=== PATIENT | female | born 1990 ===

== ENCOUNTER 2017-04-27 22:48 | Emergency (ER) | payer SELFPAY ==
[2017-04-27 23:00] VITALS: BP 128/82; PULSE 97; RESP 18; TEMP 99.1; O2SAT 99
--- NOTE | 2017-04-27 23:48 | ED PDOC ---
HPI: Back Time Seen by Provider: 04/27/17 22:58 Chief Complaint (Nursing): Back Pain Chief Complaint (Provider): Fall, back and neck pain - 18 weeks History Per: Patient History/Exam Limitations: no limitations Onset/Duration Of Symptoms: Days Current Symptoms Are (Timing): Still Present Additional Complaint(s): PT slipped and landed on her back and hit the right side of head. No LOC. Pt reports low back and neck pain. 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 Pt denies abdominal pain, pelvic pain or vaginal bleeding. Past Medical History Reviewed: Historical Data, Nursing Documentation, Vital Signs Vital Signs: Last Vital Signs Temp 99.1 F 04/27/17 22:56 Pulse 97 H 04/27/17 22:56 Resp 18 04/27/17 22:56 BP 128/82 04/27/17 22:56 Pulse Ox 99 04/27/17 22:56 - Medical History PMH: No Chronic Diseases - Surgical History Surgical History: No Surg Hx - Family History Family History: States: No Known Family Hx - Living Arrangements Living Arrangements: With Family - Social History Current smoker - smoking cessation education provided: No Alcohol: None Drugs: Denies - Allergies Allergies/Adverse Reactions: Allergies Allergy/AdvReac Type Severity Reaction Status Date / Time No Known Allergies Allergy Verified 04/27/17 22:56 Review of Systems ROS Statement: Except As Marked, All Systems Reviewed And Found Negative Constitutional: Negative for: Fever, Chills Cardiovascular: Negative for: Chest Pain Genitourinary Female: Negative for: Vaginal Discharge, Vaginal Bleeding, Pelvic Pain Musculoskeletal: Positive for: Neck Pain, Back Pain Physical Exam - Reviewed Nursing Documentation Reviewed: Yes Vital Signs Reviewed: Yes - Physical Exam Appears: Positive for: Well, Non-toxic, No Acute Distress Head Exam: Positive for: ATRAUMATIC, NORMAL INSPECTION, NORMOCEPHALIC (No palpable hematomas ) Skin: Positive for: Normal Color, Warm, DRY Eye Exam: Positive for: Normal appearance, EOMI, PERRL ENT: Positive for: Normal ENT Inspection Neck: Positive for: Painless ROM, Pain On Movement Of Neck. Negative for: Normal (Tenderness ) Cardiovascular/Chest: Positive for: Regular Rate, Rhythm Respiratory: Positive for: CNT, Normal Breath Sounds Gastrointestinal/Abdominal: Positive for: Normal Exam, Bowel Sounds, Soft Back: Positive for: Normal Inspection Extremity: Positive for: Normal ROM Neurologic/Psych: Positive for: Alert, game programmer II-XII, Oriented, Mood/Affect, Cerebellar Tests. Negative for: Motor/Sensory Deficits, Aphasia, Facial Droop - ECG O2 Sat by Pulse Oximetry: 99 Medical Decision Making Medical Decision Making: Fatal heart beat on doopler 146. Discussed x-rays with patients and risk/benefit. PT states she feels more sore and does not think she has aany broke bones. Pt does not want any imaging at this time. Discussed return for headache, N/V. Disposition - Clinical Impression Clinical Impression: Back pain, Fall - Disposition Disposition: Routine/Home Disposition Time: 23:42 Condition: STABLE Instructions: (ED) Forms: [facility] (Turkmen)
== END 2017-04-27 23:50 | disposition home or self-care (01) ==
LOC: H.ER 22:48
DX: O26.892 Other specified pregnancy related conditions, second trimester (principal); W01.0XXA Fall on same level from slipping, tripping and stumbling without subsequent striking against object, initial encounter; Z3A.18 18 weeks gestation of pregnancy

== ENCOUNTER 2017-08-19 14:32 | Emergency (ER) | payer SELFPAY ==
[2017-08-19 15:30] VITALS: BMI 31.3
[2017-08-19 16:35] LABS: BASO % 0.5 % (0.0-2.0); EOS % 0.5 % (0.0-4.0); LYMPH # 1.6 K/uL (1.0-4.3); LYMPH % 15.7 % (20.0-40.0); MEAN CORPUSCULAR HEMOGLOBIN 30.1 pg (27.0-31.0); MEAN PLATELET VOLUME 11.4 fl (7.2-11.7); MONO # 0.7 K/uL (0.0-0.8); MONO % 7.2 % (0.0-10.0); NEUT # 7.5 K/uL (1.8-7.0); NEUT % 76.1 % (50.0-75.0); NRBC % 0.1 % (0.0-0.0); RED CELL DISTRIBUTION WIDTH 14.2 % (11.5-14.5); WHITE BLOOD COUNT 9.9 K/uL (4.8-10.8)
[2017-08-19 16:42] LABS: RBC URINE 6 /hpf (0-3); URINE BILIRUBIN NEGATIVE (NEGATIVE); URINE BLOOD SMALL (NEGATIVE); URINE COLOR YELLOW (YELLOW); URINE GLUCOSE (UA) NEG (Normal); URINE KETONE NEGATIVE (NEGATIVE); URINE LEUKOCYTE ESTERASE TRACE Leu/uL (Negative); URINE PROTEIN 100 mg/dL (NEGATIVE); URINE UROBILINOGEN 0.2-1.0 mg/dL (0.2-1.0)
[2017-08-19 16:46] LABS: WBC URINE 7 /hpf (0-5)
[2017-08-19 16:47] LABS: ALKALINE PHOSPHATASE 134 U/L (38-126); ALT/SGPT 38 U/L (9-52); AST/SGOT 22 U/L (14-36); BILIRUBIN,TOTAL 0.1 mg/dl (0.2-1.3); BLOOD UREA NITROGEN 9 mg/dl (7-17); CALCIUM 8.6 mg/dL (8.4-10.2); CARBON DIOXIDE 19 mmol/L (22-30); CHLORIDE 110 mmol/L (98-107); GFR AFRICAN-AMERICAN > 60; GLUCOSE,RANDOM 79 mg/dL (65-105); SODIUM 136 mmol/l (132-148); TOTAL PROTEIN 6.4 G/DL (6.3-8.2)
[2017-08-19 16:48] LABS: PARTIAL THROMBOPLASTIN TIME 31.1 Seconds (25.6-37.1)
[2017-08-19] MEDS: Acetaminophen 650mg/20.3ml solution UD PO ONE (17:12)
--- NOTE | 2017-08-19 19:58 | OBHP ---
Datetime: 08/19/2017 19:41 Admit Comment, IP Provider: Late entry: Patient is a 27-year-old with a EDC of 09/28/2017 at who presents at 34.2 weeks with comp laints of headache intermittent for the past 2 days rated as 7/10. She states she did not take Tyleno l because he had it was intermittent and would come and go. She denies blurred vision spots in her vi yaneli midepigastric or right upper quadrant pain. She denies nausea vomiting. Patient was having an OB ultrasound today and was told everything was within normal limits during that time she complained of a headache and was referred to OB ED for further evaluation. She reports good movement; denie s ruptured membranes, contractions, or vaginal bleeding Her prior OB history significant for preeclampsia with a section at 35 weeks. Medications : vitamin; aspirin 81 mg daily Past surgical history: Left arm surgery; delivery Past medical history denies Social history patient denies tobacco or illicit drug use or alcohol use. o I: elev bps prior h/o preeclampsi P:cmp, cbc, u/a addendum result d/w dr lemus p: betameth today. rpeat in 24hr- indic d/w pt f/u w/ ob as sched'd in 1wk. repeat 24hr urine in 1wk. preeclamptic precauti pt stated h/a resolved and she had declined tylenol for h/a Extremities - PN: Normal Abdomen - PN: Normal Lungs - PN: Normal Neurologic - PN: Normal HEENT - PN: Normal General - PN: Normal FHR - Baseline A Provider: 120 Comments, ACOG Physical Exam: urine hcg 1wk ago_500mg protein/24hr u/ today: +2protein cmp, cbc. ldh nl Vital Signs Provider: Reviewed Vital Signs Provider Details: [id number] NICHD Variability Prov Fetus A: Moderate 6-25bpm NICHD Accel Fetus A IP Provider: 15X15 FHR Category Provider Fetus A: Category I NICHD Decel Fetus A IP Provider: None
[2017-08-19] MEDS: Betamethasone Soluspan 30 mg/5mL Inj Susp IM ONE (20:19)
[2017-08-20 02:48] VITALS: BP 128/82; PULSE 82; RESP 18; O2SAT 100
== END 2017-08-19 20:35 | disposition home or self-care (01) ==
LOC: H.EROB2 14:32
DX: O13.3 Gestational [pregnancy-induced] hypertension without significant proteinuria, third trimester (principal); O09.93 Supervision of high risk pregnancy, unspecified, third trimester; Z87.59 Personal history of other complications of pregnancy, childbirth and the puerperium; Z3A.34 34 weeks gestation of pregnancy
CPT/HCPCS: 80053; 81003; 83615; 85025; 85384; 85610; 85730; 86850; 86900; 96372; 99283; J0702

== ENCOUNTER 2017-08-20 19:27 | Emergency (ER) | payer SELFPAY ==
[2017-08-19 15:30] VITALS: BMI 31.3
[2017-08-20] MEDS: Betamethasone Soluspan 30 mg/5mL Inj Susp IM ONE (20:48)
--- NOTE | 2017-08-20 22:07 | OBDCSUM ---
Datetime: 08/20/2017 20:57 Discharged to, Provider: Home Follow up at, Provider: [facility] clinic Disch Instr Activity: Normal activity Disch Instr Diet: Regular Discharge Instructions, Provider: Routine instructions given Discharge Time: 08/20/2017 21:00 Follow up in weeks, Provider: Nola 08/28/17 Disch Referrals: None Contraception discussed, Prov: No Discharge Diagnosis Prov Other: w/ h/o pre-eclampsia for betamethasone administrat ion
--- NOTE | 2017-08-20 22:11 | OBHP ---
Datetime: 08/20/2017 20:27 IP Adm Impression: , intrauterine IP Chief Complaint Other: Betamethasone administration IP Admit Plan: Observation/Evaluation; Discharge home Admit Comment, IP Provider: 27 y/o F at 34.3 weeks GA, TEMO 09/28/[address] [place] [address], present ing for administration of 2nd dose of Betamethasone. Pt asymptomatic today. Pt reports intermittent e pisodes of headache that usually reach 7/10 intensity and resolves spontaneously over a few hours wit hout medications intake. Pt reports dizziness and blurry vision every 4-7 days which also resolves sp ontaneously. No VB, LOF or CTX. FM present. Pt presented yesterday to [facility] for pre-eclamptic work-up due to episodes of headache and elevated BP. Labs results were WNL. Betamethasone was administered la st night. Pt denies CP, SOB, pruritus, N/V or rash. -OBHx: 1x C/S at 35 weeks GA on 04/01/12 due to pre-eclampsia. 1X SAB at 8 weeks GA on 2009. Curre nt has been complicated with circumvallate placenta and positive Urine Cx for GBS. -NKDA -Medications: PNV and Aspirin. PMHx: denied PSHx: L arm fracture repair at 8 y.o, and 1x . FHx: NC SHx: No tobacco, alcohol or rec drugs. A/P 27 y/o F with IUP at 34.3 weeks GA with elevated BP and episodes of headache, blurry vision an d dizziness. -2nd dose of Betamethasone will be administered today. -Pt reinforced on going for F/U with Dr Myers next and to collect urine for 24 hr for pr otein before doctor's appointment. -PTL and pre-eclampsia precautions discussed with pt. Pt reported understanding. -Will discharge home. -Continue daily aspirin and PNV. Case discussed with Dr Calabrese, OB international trade analyst. David PGY-1 OB Hospitalist Addendum: Pt seen and examined by me. 27 yo at 34+3 wks for second dose of Betamethasone for sx of PEC. Pt denies MEDINA, vision changes, abdominal pain, N/V currently. Pt appea red comfortable lying in bed. Exam as above. NST reactive. Pt received second Betamthasone dose at 20:48 and was discharged home w/ PEC precautions. Pt to f/u in clinic and u/s on 08/28/2017. Pt al so to collect a 24 hr urine on 08/26/2017. (ES) Pelvic Type - PN: Adequate Extremities - PN: Normal Abdomen - PN: Normal Back - PN: Normal Lungs - PN: Normal Heart - PN: Normal Thyroid - PN: Normal Neurologic - PN: Normal HEENT - PN: Normal General - PN: Normal FHR - Baseline A Provider: 130 Comments, ACOG Physical Exam: HEENT: normocephalic, non-tender, EOMI, PERRL. CV: S1 and S2 present, rythm regular. Lungs: Clear to auscultation b/l, No wheezing or rales. Abdomen: soft, gravid, BS +, non-tender. EXT: mild bilateral lower leg edema. No cyanosis or clubbing. DTR 2+ b/l, normal ROM b/l, SILT b/l . Gestation - Est Wks by US: 34.3 IP Hx Assessment: The History has been Reviewed and is Current EGA AdmitDate IP: 34.3 Vital Signs Provider: Reviewed IP Chief Complaint: Other NICHD Variability Prov Fetus A: Moderate 6-25bpm NICHD Accel Fetus A IP Provider: 15X15 FHR Category Provider Fetus A: Category I DTRs - PN: Not Done
[2017-08-21 01:22] VITALS: BP 133/84; PULSE 79
== END 2017-08-20 21:00 | disposition home or self-care (01) ==
LOC: H.EROB2 19:27
DX: O14.93 Unspecified pre-eclampsia, third trimester (principal); Z3A.34 34 weeks gestation of pregnancy; Z23 Encounter for immunization; Z87.59 Personal history of other complications of pregnancy, childbirth and the puerperium
CPT/HCPCS: 96372; 99281; J0702

== ENCOUNTER 2017-08-27 10:43 | Inpatient (IN) | payer SELFPAY ==
[2017-08-27 11:15] VITALS: BMI 34.3
--- NOTE | 2017-08-27 12:10 | US ---
PROCEDURE: OB Pelvic Ultrasound HISTORY: decreased movement COMPARISON: None available. FINDINGS: UTERUS: Single intrauterine gestation. -without cardiac activity. demise. Heart rate: Not present. age (Ultrasound estimated): Biometric parameters correspond to an ultrasound dating of 33 weeks 3 days 2 weeks 2 days. The LMP dating gestational age is 35 weeks 3 days Lore-gestational hemorrhage: None. Date of delivery (Ultrasound estimated) : Not applicable Uterus measures cm. Normal in size and appearance. Transverse presentation. Posterior placenta. CERVIX: 3.7 cm and closed. No cervical abnormality seen. RIGHT OVARY: Not visualized LEFT OVARY: Not visualized FREE FLUID: None. OTHER FINDINGS: None. IMPRESSION: Single intrauterine gestation without cardiac activity consistent with demise. The biometric ultrasound parameters correspond to a mean ultrasound age is 33 weeks 3 days. Transverse presentation. Posterior placenta
[2017-08-27] MEDS ORDERED: ceFAZolin IV 2 gm in Dextrose 2 GM/50 ML BAG IVPB ONE (14:16)
[2017-08-27 14:35] LABS: BASO % 0.4 % (0.0-2.0); EOS % 0.4 % (0.0-4.0); HEMOGLOBIN 13.9 g/dL (12.0-16.0); LYMPH # 1.7 K/uL (1.0-4.3); LYMPH % 15.6 % (20.0-40.0); MEAN CELL VOLUME 88.4 fl (81.0-99.0); MEAN CORPUSCULAR HEMOGLOBIN 30.5 pg (27.0-31.0); MEAN CORPUSCULAR HGB CONC 34.5 g/dL (33.0-37.0); MEAN PLATELET VOLUME 10.8 fl (7.2-11.7); MONO # 0.8 K/uL (0.0-0.8); MONO % 7.2 % (0.0-10.0); NEUT # 8.1 K/uL (1.8-7.0); NEUT % 76.4 % (50.0-75.0); NRBC % 0.1 % (0.0-0.0); RBC 4.55 Mil/uL (3.80-5.20); RED CELL DISTRIBUTION WIDTH 14.5 % (11.5-14.5); WHITE BLOOD COUNT 10.6 K/uL (4.8-10.8)
[2017-08-27] MEDS: Lactated Ringer's 1,000 ML IV SCH ×2 (15:30→17:32)
[2017-08-27] MEDS ORDERED: Oxytocin 30 UNITS in Sodium Chloride 0.9% 500 ML IV ONE (17:00)
[2017-08-27] MEDS ORDERED: DiphenhydrAMINE 50 mg/ml Inj IVP PRN (19:46)
[2017-08-27] MEDS ORDERED: Oxycodone/Acetaminophen 5/325 mg Tab PO PRN (19:46)
--- NOTE | 2017-08-27 20:33 | RAD ---
EXAM: XR Abdomen, 1 View CLINICAL HISTORY: 27 years old, female; Signs and symptoms; Other: R/O foreign object; Additional info: S/P section TECHNIQUE: Frontal supine view of the abdomen/pelvis. COMPARISON: No relevant prior studies available. FINDINGS: Intraperitoneal space: Limited evaluation for pneumoperitoneum on supine view. Gastrointestinal tract: Nondistended stool and air-filled colon. Several borderline to mildly distended loops of small bowel. Bones/joints: No acute fracture. Soft tissues: No radiopaque foreign bodies. Other findings: No abnormal calcifications. IMPRESSION: 1. No radiopaque foreign bodies. 2. Nonspecific bowel gas pattern.
[2017-08-28 07:00] LABS: ALB/GLOB RATIO 0.9 (1.0-2.1); ALBUMIN 2.4 g/dL (3.5-5.0); ALT/SGPT 67 U/L (9-52); AST/SGOT 41 U/L (14-36); BLOOD UREA NITROGEN 10 mg/dl (7-17); CALCIUM 7.8 mg/dL (8.4-10.2); GFR AFRICAN-AMERICAN > 60; GFR NON-AFRICAN AMERICAN > 60
[2017-08-28 07:04] LABS: RED CELL DISTRIBUTION WIDTH 14.5 % (11.5-14.5)
[2017-08-28 07:23] LABS: HEMOGLOBIN 11.8 g/dL (12.0-16.0); MEAN CELL VOLUME 90.2 fl (81.0-99.0); MEAN CORPUSCULAR HEMOGLOBIN 29.4 pg (27.0-31.0); MEAN CORPUSCULAR HGB CONC 32.7 g/dL (33.0-37.0); RBC 4.02 Mil/uL (3.80-5.20); WHITE BLOOD COUNT 12.2 K/uL (4.8-10.8)
--- NOTE | 2017-08-28 07:40 | CP.PCM.PN ---
Subjective - Date & Time of Evaluation Date of Evaluation: 08/28/17 Time of Evaluation: 07:00 - Subjective Subjective: POD 1 S: 27 yo s/p on 08/27/17 2/2 demise. Pt. is seen and examined at bedside this AM. No significant overnight events. Pt reports mild abdominal pain, but well controlled with pain meds. D/c dominguez, dressing to be removed at 18:00. No nausea, advised to advance diet as tolerated. Breast feeding without difficulty. Lochia is similar to menses volume. No bowel movement, or passing gas per rectum. Denies fever/chills, diarrhea, nausea/ vomiting, chest pain, dyspnea, and dizziness. O: VS: stable GEN: NAD, Cardio: S1S2, no murmurs Lungs: clear breath sounds b/l, no wheezing Abdomen: BS+, tenderness to palpation. Incision scar to be examined at 1800 with dressing removal. Uterus is firm and at the level of the umbilicus. EXT: No edema, calves nontender NEURO/PSYCH: AAOx3, no grossly focal deficits, preserved affect and mood. Assessment/Plan: 27 yo s/p on 08/27/17 2/2 demise. Pt remains afebrile, tolerating pain with medication, doing well on POD#1. OOB with caution SCDs for DVT prophylaxis, encouraged ambulating Percocet 5/325mg, and Motrin 600mg for pain. Colace 100mg PO BID/Senokot 17.2 mg for constipation Encourage and ambulating f/u CBC post op, pending Anticipated d/c to home, 08/30/17. --- Logan Baez MD PGY-1 Objective - Vital Signs/Intake and Output Vital Signs (last 24 hours): Temp Pulse Resp BP Pulse Ox 98.1 F 76 22 121/71 96 08/28/17 04:48 08/28/17 04:48 08/28/17 04:48 08/28/17 04:48 08/28/17 04:48 - Medications Medications: Current Medications Acetaminophen (Tylenol 325mg Tab) 650 mg PO Q4H PRN PRN Reason: Pain, Mild (1-3) Last Admin: 08/28/17 02:57 Dose: 650 mg Diphenhydramine HCl (Benadryl) 50 mg IVP Q6 PRN PRN Reason: Itching / Pruritus Oxytocin (Pitocin 20 Units In Lr) 1,000 mls @ 125 mls/hr IV .Q8H NORA PRN Reason: Protocol Last Admin: 08/28/17 04:58 Dose: Not Given Ibuprofen (Motrin Tab) 600 mg PO Q4H PRN PRN Reason: Pain, Mild (1-3) Ketorolac Tromethamine (Toradol) 30 mg IVP Q6 PRN PRN Reason: Pain, moderate (4-7) Last Admin: 08/28/17 03:23 Dose: 30 mg Ondansetron HCl (Zofran Inj) 4 mg IVP Q6 PRN PRN Reason: Nausea/Vomiting Oxycodone/Acetaminophen (Percocet 5/325 Mg Tab) 1 tab PO Q4 PRN PRN Reason: For PCEA Breakthrough Pain Stop: 08/30/17 19:47 - Labs Labs: 08/28/17 06:25 08/28/17 06:25
--- NOTE | 2017-08-29 07:45 | CP.PCM.PN ---
Subjective - Date & Time of Evaluation Date of Evaluation: 08/29/17 Time of Evaluation: 07:45 - Subjective Subjective: POD 2 S: 27 yo s/p on 08/27/17 2/2 demise. Pt. is seen and examined at bedside this AM. No significant overnight events. Pt reports mild abdominal pain, but well controlled with pain meds. Dressing removed yesterday, tolerating PO without difficulty. Lochia is similar to menses volume. No bowel movement or passing gas per rectum. Denies fever/chills, diarrhea, nausea/ vomiting, chest pain, dyspnea, and dizziness. O: VS: stable GEN: NAD, Cardio: S1S2, no murmurs Lungs: clear breath sounds b/l, no wheezing Abdomen: BS+, tenderness to palpation. Incision scar clean, dry, no erythema or exudates. Uterus is firm and at the level of the umbilicus. EXT: No edema, calves nontender NEURO/PSYCH: AAOx3, no grossly focal deficits, preserved affect and mood. Assessment/Plan: 27 yo s/p on 08/27/17 2/2 demise. Pt remains afebrile, tolerating pain with medication, doing well on POD#2. OOB with caution SCDs for DVT prophylaxis, encouraged ambulating Percocet 5/325mg, and Motrin 600mg for pain. Colace 100mg PO BID/Senokot 17.2 mg for constipation CBC post op:11.8/36.3 Anticipated d/c to home, 08/30/17. Lyao Kaiser PGY 1 Objective - Vital Signs/Intake and Output Vital Signs (last 24 hours): Temp Pulse Resp BP Pulse Ox 99 F 72 18 124/83 95 08/29/17 00:34 08/29/17 00:34 08/29/17 00:34 08/29/17 00:34 08/29/17 00:34 - Medications Medications: Current Medications Acetaminophen (Tylenol 325mg Tab) 650 mg PO Q4H PRN PRN Reason: Pain, Mild (1-3) Last Admin: 08/29/17 05:25 Dose: 650 mg Diphenhydramine HCl (Benadryl) 50 mg IVP Q6 PRN PRN Reason: Itching / Pruritus Ketorolac Tromethamine (Toradol) 30 mg IVP Q6 PRN PRN Reason: Pain, moderate (4-7) Last Admin: 08/28/17 11:28 Dose: 30 mg Ondansetron HCl (Zofran Inj) 4 mg IVP Q6 PRN PRN Reason: Nausea/Vomiting Oxycodone/Acetaminophen (Percocet 5/325 Mg Tab) 1 tab PO Q4 PRN PRN Reason: For PCEA Breakthrough Pain Stop: 08/30/17 19:47 - Labs Labs: 08/28/17 06:25 08/28/17 06:25
--- NOTE | 2017-08-29 09:10 | CON ---
PREOPERATIVE DIAGNOSES: Intrauterine demise at 33 weeks, history of previous section, transverse lie. PREOPERATIVE DIAGNOSES: Intrauterine demise at 33 weeks, history of previous section, transverse lie. OPERATION PERFORMED: A repeat low-flap transverse section via Pfannenstiel skin incision. SURGEON: Rosalba Granda MD. RECYCLING TECHNICIAN: Kenneth Raya MD. He was helpful in the care of the patient. He was helpful in creating exposure, obtaining hemostasis, delivery of the , closure of the patient. The procedure would not have been possible without his assistance. ESTIMATED BLOOD LOSS: 800 mL. URINE OUTPUT: Alston catheter put out approximately 300 mL of clear urine. IV FLUID INTAKE: The patient received approximately 1200 mL of D5 LR intraoperatively. OPERATIVE FINDINGS: A female delivered from the vertex presentation. Apgars were 0 and 0. Normal uterus, tubes and ovaries were identified. COMMENTS: The patient presented to [place] for [facility] complaining of decreased movement. They were unable to auscultate heart tones. The patient was referred to [facility] for further evaluation. Upon arrival, heart tones were not identified. Bedside sonogram was performed. No heart rate activity noted. Second opinion was obtained and intrauterine demise was confirmed. DESCRIPTION OF PROCEDURE: After informed consent was obtained, the patient was taken to the operating room where she was given spinal anesthesia. She was then prepped and draped in a normal sterile fashion. A Pfannenstiel skin incision was then made with a scalpel and carried down to the underlying layer of the fascia. The fascia was nicked in the midline. The fascial incision was then extended laterally with the curved Foreman scissors. Superior aspect of the fascial incision was then grasped with Monster clamps, elevated up and the rectus muscles were dissected off using both sharp and blunt dissection. Attention was then turned to the inferior aspect of the fascial incision which in a similar fashion was grasped with Monster clamps, elevated up and the rectus muscles were dissected off using both sharp and blunt dissection. The rectus muscles were then in the midline. The peritoneum identified and entered sharply with the Metzenbaum scissors. The peritoneal incision was then extended superiorly and inferiorly with good visualization of the bladder. The bladder blade was inserted. The vesicouterine peritoneum was identified, grasped with smooth pickups and entered sharply with the Metzenbaum scissors. The incision was then extended laterally. The bladder flap was created digitally. The bladder blade was then readjusted and a low transverse incision was made with a scalpel. The uterine incision was then extended laterally with the bandage scissors. The infant's head was then delivered atraumatically. The cord was clamped and cut. The infant was handed off to the awaiting pediatricians. The placenta was then removed manually. The uterus was exteriorized and cleared off all clots and debris. The uterine incision was repaired with 0 Vicryl in a running locked fashion. A second layer of the same suture was used to obtain an excellent hemostasis. The abdomen was then copiously irrigated. The irrigant was removed with a suction device. The uterus was returned to the abdomen. The gutters were cleared off all clots and debris. The uterine incision was reexamined. Hemostasis was noted. The peritoneum was then closed with 2-0 Vicryl in a running fashion. The muscles were reapproximated with 0 Vicryl in an interrupted fashion. The fascia was closed with 0 Vicryl in a running fashion. The skin was closed with 4-0 on a Jono needle. All sponge, lap, needle and instrument counts were correct x2 and the patient was taken to the recovery room in awake and stable condition. Rosalba Granda MD
--- NOTE | 2017-08-29 11:26 | OBPPN ---
Datetime: 08/29/2017 11:24 PP Pain Prov: Within normal limits PP Nausea Prov: Denies PP Flatus Prov: Yes PP BM Prov: No PP Breasts Prov: Normal PP Heart Prov: Normal PP Lungs Prov: Normal PP Abdomen/Uterus Prov: Normal PP Lochia Prov: Normal PP Vulva/Perineum Prov: Normal PP CVA Tenderness Prov: Normal PP Extremities Prov: Normal PP C/S Incision Prov: Normal PP Impression Prov: Normal progression PP Plan Prov: Discharge PP Progress Note Prov: Pt seen on 6th floor. She wants to go home. No BM + flatus A; S/P C/S for demise PLAN: with , we disussed postop/ care. She will follow up [facility] in 1-2w. Declines social service/grievance counselling Vital Signs Provider PP: Reviewed; Within Normal Limits
--- NOTE | 2017-08-29 11:29 | OBDCSUM ---
Datetime: 08/29/2017 11:27 Discharged to, Provider: Home Follow up at, Provider: [facility] Disch Instr Activity: Normal activity Disch Instr Diet: Regular Discharge Instructions, Provider: Routine instructions given Follow up in weeks, Provider: 1-2w Disch Referrals: None Contraception discussed, Prov: Yes Discharge Diagnosis Prov Other: S/P c-sectoin demise/repeat C/S
[2017-08-29 18:28] VITALS: BP 121/71; PULSE 76; RESP 22; TEMP 98.1; O2SAT 96
== END 2017-08-29 14:27 | disposition home or self-care (01) | DRG 371 ==
LOC: H.EROB2 10:43 → H.EROB 11:01 → H.L&D 12:38 → H.EROB2 12:38 → H.MEDSURG1 08-28 00:46
PROVIDERS: ADMIT Obstetrics & Gynecology Gynecology; ATTEND Obstetrics & Gynecology Gynecology
PROC: 10D00Z1 Extraction of Products of Conception, Low, Open Approach (ICD-10-PCS; principal; 2017-08-27)
DX: O36.4XX0 Maternal care for intrauterine death, not applicable or unspecified (principal); O32.2XX0 Maternal care for transverse and oblique lie, not applicable or unspecified; O34.219 Maternal care for unspecified type scar from previous cesarean delivery; Z3A.33 33 weeks gestation of pregnancy; Z37.1 Single stillbirth

== ENCOUNTER 2018-04-29 11:52 | Day surgery (SDC) | payer SELFPAY ==
[2018-04-21 10:01] VITALS: BMI 26.6
[2018-04-29 12:30] VITALS: RESP 18
[2018-04-29] MEDS ORDERED: Midazolam 2 MG/2 ML VIAL ONE (12:39)
[2018-04-29] MEDS ORDERED: Propofol 10 mg/ml Inj (20 ML) ONE (12:42)
[2018-04-29] MEDS ORDERED: ceFAZolin IV 1 gm in Dextrose 2 GM/100 ML BAG IVPB ONE (13:46)
[2018-04-29] MEDS ORDERED: Lactated Ringer's 1,000 ML IV ONE (13:48)
[2018-04-29] MEDS ORDERED: Dexamethasone 4 mg/1 ml ONE (14:02)
[2018-04-29] MEDS ORDERED: Bupivacaine HCl 0.25% PF (30 ml) Inj IJ ONE ×2 (14:59)
[2018-04-29] MEDS ORDERED: Dexamethasone 4 mg/1 ml IVP PRN (15:25)
[2018-04-29] MEDS ORDERED: HYDROmorphone 1 mg/ml ISec IVP PRN (15:25)
[2018-04-29] MEDS ORDERED: DiphenhydrAMINE 50 mg/ml Inj IVP PRN (15:25)
[2018-04-29] MEDS ORDERED: Lactated Ringer's 1,000 ML IV SCH (15:30)
--- NOTE | 2018-04-29 15:44 | PCM.SURG1 ---
Surgeon's Initial Post Op Note - Surgeon's Notes Surgeon: Dr. Castillo Mirror Maker: Dr. Sullivan PGY-3 Type of Anesthesia: General LMA Pre-Operative Diagnosis: Umbilical hernia Operative Findings: See operative report Post-Operative Diagnosis: Same Operation Performed: Umbilical hernia repair with mesh Specimen/Specimens Removed: hernia sac Estimated Blood Loss: EBL {In ML}: 10 Blood Products Given: N/A Drains Used: No Drains Post-Op Condition: Good Date of Surgery/Procedure: 04/29/18 Time of Surgery/Procedure: 15:43
[2018-04-29 18:31] VITALS: BP 109/68; PULSE 71; TEMP 97.9; O2SAT 94
--- NOTE | 2018-05-01 02:27 | OP ---
PROCEDURE DATE: 04/29/2018 SURGEON: Mark Castillo MD ORTHODONTIC LAB TECHNICIAN: Merly Sullivan DO ANESTHESIA: General LMA. ANESTHESIOLOGIST: Josh Guadarrama MD PREOPERATIVE DIAGNOSIS: Umbilical hernia. POSTOPERATIVE DIAGNOSIS: Umbilical hernia. PROCEDURE: Umbilical hernia repair with mesh. DESCRIPTION OF OPERATION: With the patient in the supine position under adequate general anesthesia, the abdomen was prepped and draped in the usual sterile manner. The patient was noted to have a wide umbilical skin which was concave at the time of surgery as well as moderately flaccid anterior abdominal wall. A semicircular incision was made around the lower edge of the umbilical skin, and the skin was raised allowing the umbilical stalk to be dissected circumferentially above the level of the fascia. The stalk was divided allowing the skin to be raised completely, and a small amount of incarcerated preperitoneal fat was noted within the stalk. There was a small amount of omentum incarcerated within the stalk as well, and this was gently freed and returned to the peritoneal cavity. When the stalk had been completely divided, there was noted to be a 3-cm fascial defect with a thickened stalk of preperitoneal material, possibly including the umbilical remnant adherent to the edge of the defect. This was divided at the level of the fascia using a combination of cautery and Vicryl suture ligature to maintain a hemostatic division. The defect was again evaluated and again noted to be just under 3 cm in diameter. A 6.4-cm Ventrio hernia patch was placed within the defect and deployed to lay firmly against the anterior abdominal wall. It was palpated circumferentially to exclude any omental intrusion, and the mesh was then sutured circumferentially to the edge of the fascia using interrupted sutures of 0 Prolene. The base of the umbilical skin was then loosely sutured to the area of the repair using a 4-0 chromic suture, and closure was performed with subcuticular sutures of 4-0 Monocryl and Dermabond. An umbilical packing was then placed followed by a light dressing. The patient tolerated the procedure well and transferred to recovery room in stable condition. Estimated blood loss for the procedure was 10 mL. Mark Castillo MD [facility] # [id number] SOURAV
== END 2018-04-29 19:25 | disposition home or self-care (01) ==
LOC: H.OPSURG 11:52
PROVIDERS: ATTEND Specialist
DX: K42.9 Umbilical hernia without obstruction or gangrene (principal)
CPT/HCPCS: 49585; 88302; J0690; J1100; J1170; J1885; J2001; J2250; J2405; J2704; J3010; J7030; J7120

== ENCOUNTER 2018-05-05 15:42 | Emergency (ER) | payer SELFPAY ==
[2018-05-05 15:42] VITALS: BMI 26.6
[2018-05-05 15:57] VITALS: RESP 18; TEMP 98.5
--- NOTE | 2018-05-05 17:26 | ED PDOC ---
HPI: Abdomen Time Seen by Provider: 05/05/18 16:03 Chief Complaint (Nursing): Abdominal Pain Chief Complaint (Provider): Abdominal pain, right sided History Per: Patient History/Exam Limitations: no limitations Onset/Duration Of Symptoms: Days Outside of [place] travel?: No Current Symptoms Are (Timing): Still Present Additional Complaint(s): 28 yo female 1 week s/p hernia repair by Dr. Castillo presents for evaluation of drainage from her belly button. Pt states it is now dried but appeared yellow. Pt without fever/chills. Pt was concerned. Pt did not contact Dr. Castillo. Past Medical History Reviewed: Historical Data, Nursing Documentation, Vital Signs Vital Signs: Last Vital Signs Temp 98.5 F 05/05/18 15:54 Pulse 104 H 05/05/18 15:54 Resp 18 05/05/18 15:54 BP 113/76 05/05/18 15:54 Pulse Ox 98 05/05/18 17:28 - Medical History PMH: HTN Denies: Depression, Diabetes, Chronic Kidney Disease - Surgical History Surgical History: No Surg Hx - Family History Family History: States: No Known Family Hx - Living Arrangements Living Arrangements: With Family - Social History Current smoker - smoking cessation education provided: No - Home Medications Home Medications: Ambulatory Orders Medication Instructions Recorded Aspirin [Ecotrin] 81 mg PO DAILY 04/29/18 oxyCODONE/Acetaminophen [Percocet 1 tab PO Q4 PRN 04/29/18 5/325 mg Tab] - Allergies Allergies/Adverse Reactions: Allergies Allergy/AdvReac Type Severity Reaction Status Date / Time No Known Allergies Allergy Verified 05/05/18 15:52 Review of Systems ROS Statement: Except As Marked, All Systems Reviewed And Found Negative Constitutional: Negative for: Fever, Chills Cardiovascular: Negative for: Chest Pain Respiratory: Negative for: Cough, Shortness of Breath Gastrointestinal: Positive for: Abdominal Pain, Other. Negative for: Nausea, Vomiting Physical Exam - Reviewed Nursing Documentation Reviewed: Yes Vital Signs Reviewed: Yes - Physical Exam Appears: Positive for: Well, Non-toxic, No Acute Distress Head Exam: Positive for: ATRAUMATIC, NORMAL INSPECTION, NORMOCEPHALIC Skin: Positive for: Normal Color (No erythema surrounding sutures at umbilicus. (-) drainage noted. Small gauzed in umbilicus with clear dressing. ), Warm Eye Exam: Positive for: Normal appearance ENT: Positive for: Normal ENT Inspection Neck: Positive for: Normal Cardiovascular/Chest: Positive for: Regular Rate, Rhythm Respiratory: Positive for: CNT, Normal Breath Sounds Gastrointestinal/Abdominal: Positive for: Soft, Tenderness (right sided tender ) . Negative for: Normal Exam Back: Positive for: Normal Inspection Extremity: Positive for: Normal ROM Neurologic/Psych: Positive for: Alert, Oriented - Laboratory Results Result Diagrams: 05/05/18 17:35 05/05/18 17:35 - ECG O2 Sat by Pulse Oximetry: 98 Medical Decision Making Medical Decision Making: Called group president that is currently in OR. Discussed with patient. Pt has no fever, no drainage from would. Pt with normal WBC. DF/u appointment in 1 week. Discussed f.u sooner and return for worsening symptoms, fever/chills, N/V/D, worsening pain. Disposition - Clinical Impression Clinical Impression: Encounter for postoperative wound check - Patient ED Disposition Is Patient to be Admitted: No Counseled Patient/Family Regarding: Diagnosis, Need For Followup - Disposition Disposition: Routine/Home Disposition Time: 20:07 Condition: STABLE Instructions: Surgical Wound (DC) Forms: [employer] (Croatian)
[2018-05-05 18:05] LABS: BASO # 0.1 K/uL (0.0-0.2); BASO % 0.5 % (0.0-2.0); EOS # 0.5 K/uL (0.0-0.7); EOS % 5.1 % (0.0-4.0); HEMOGLOBIN 14.3 g/dL (12.0-16.0); LYMPH # 2.1 K/uL (1.0-4.3); LYMPH % 23.1 % (20.0-40.0); MEAN CELL VOLUME 88.7 fl (81.0-99.0); MEAN CORPUSCULAR HEMOGLOBIN 30.5 pg (27.0-31.0); MEAN CORPUSCULAR HGB CONC 34.4 g/dL (33.0-37.0); MEAN PLATELET VOLUME 9.8 fl (7.2-11.7); MONO # 0.5 K/uL (0.0-0.8); NEUT % 65.3 % (50.0-75.0); RBC 4.7 Mil/uL (3.80-5.20); WHITE BLOOD COUNT 9.1 K/uL (4.8-10.8)
[2018-05-05 18:14] LABS: ALB/GLOB RATIO 1.4 (1.0-2.1); ALBUMIN 4.5 g/dL (3.5-5.0); ALT/SGPT 87 U/L (9-52); AST/SGOT 53 U/L (14-36); BLOOD UREA NITROGEN 10 mg/dl (7-17); CALCIUM 9.7 mg/dL (8.4-10.2); GFR NON-AFRICAN AMERICAN > 60
[2018-05-06 02:40] VITALS: BP 110/72; PULSE 82; O2SAT 99
== END 2018-05-05 20:22 | disposition home or self-care (01) ==
LOC: H.ER 15:42
DX: Z48.01 Encounter for change or removal of surgical wound dressing (principal); I10 Essential (primary) hypertension; Z79.82 Long term (current) use of aspirin

== ENCOUNTER 2018-07-12 06:49 | Emergency (ER) | payer SELFPAY ==
[2018-07-12 06:50] VITALS: BMI 26.6
[2018-07-12 07:18] VITALS: BP 107/71; PULSE 91; RESP 16; TEMP 97.4; O2SAT 99
[2018-07-12] MEDS ORDERED: Oxycodone/Acetaminophen 5/325 mg Tab PO ONE (09:14)
[2018-07-12] MEDS ORDERED: Oxycodone/Acetaminophen 5/325 mg Tab ONE (09:25)
--- NOTE | 2018-07-12 10:56 | ED PDOC ---
HPI: Female Pain Time Seen by Provider: 07/12/18 08:37 Chief Complaint (Nursing): Female Genitourinary Chief Complaint (Provider): Female Genitourinary History Per: Patient History/Exam Limitations: no limitations Onset/Duration Of Symptoms: Days (x4) Current Symptoms Are (Timing): Still Present Additional Complaint(s): 28 year old female presents to the ED with urinary complaints for 4 days. Patient reports having burning with urination, pain with urination, and suprapubic pain for 4 days. She states she developed a rash in the genital area. 2 days ago, patient went to the clinic and was prescribed Macrobid for UTI and acyclovir for herpes which she has been taking for the 2 days. Patient has not taken any medications for pain. Denies fever, back pain, and vomiting. PMD: none Past Medical History Reviewed: Historical Data, Nursing Documentation, Vital Signs Vital Signs: Last Vital Signs Temp 97.4 F L 07/12/18 07:16 Pulse 91 H 07/12/18 07:16 Resp 16 07/12/18 07:16 BP 107/71 07/12/18 07:16 Pulse Ox 99 07/12/18 07:16 - Medical History PMH: HTN Denies: Depression, Diabetes, Chronic Kidney Disease - Surgical History Surgical History: - Family History Family History: States: Unknown Family Hx - Home Medications Home Medications: Ambulatory Orders Medication Instructions Recorded Aspirin [Ecotrin] 81 mg PO DAILY 04/29/18 oxyCODONE/Acetaminophen [Percocet 1 tab PO Q4 PRN 04/29/18 5/325 mg Tab] Phenazopyridine HCl [Pyridium] 100 mg PO TID #9 tablet 07/12/18 - Allergies Allergies/Adverse Reactions: Allergies Allergy/AdvReac Type Severity Reaction Status Date / Time No Known Allergies Allergy Verified 07/12/18 08:09 Review of Systems ROS Statement: Except As Marked, All Systems Reviewed And Found Negative Constitutional: Negative for: Fever Gastrointestinal: Positive for: Abdominal Pain (suprapubic). Negative for: Vomiting Genitourinary Female: Positive for: Dysuria Musculoskeletal: Negative for: Back Pain Skin: Positive for: Rash Physical Exam - Reviewed Nursing Documentation Reviewed: Yes Vital Signs Reviewed: Yes - Physical Exam Appears: Positive for: Non-toxic, No Acute Distress. Negative for: Uncomfortable Head Exam: Positive for: ATRAUMATIC, NORMOCEPHALIC Skin: Positive for: Normal Color, Warm, Dry Eye Exam: Positive for: Normal appearance Neck: Positive for: Normal, Painless ROM Cardiovascular/Chest: Positive for: Regular Rate, Rhythm Respiratory: Positive for: Normal Breath Sounds. Negative for: Wheezing, Respiratory Distress Gastrointestinal/Abdominal: Positive for: Tenderness (mild suprapubic) Extremity: Positive for: Normal ROM Neurologic/Psych: Positive for: Alert, Oriented - ECG O2 Sat by Pulse Oximetry: 99 (RA) Pulse Ox Interpretation: Normal Medical Decision Making Medical Decision Making: Initial Impression: UTI Initial Plan: --ED urine dipstick --Oxycodone 1 tab PO --Pyridium 200mg PO Urine dipstick shows leukocytes in blood consistent with UTI but patient is not . Patient instructed to continue taking acyclovir. Scribe Attestation: Documented by Jj Sanchez acting as a scribe for Gomez French MD. Provider Scribe Attestation: All medical record entries made by the Scribe were at my direction and personally dictated by me. I have reviewed the chart and agree that the record accurately reflects my personal performance of the history, physical exam, medical decision making, and the department course for this patient. I have also personally directed, reviewed, and agree with the discharge instructions and disposition. Disposition - Clinical Impression Clinical Impression: Urinary tract infection - Patient ED Disposition Is Patient to be Admitted: No Doctor Will See Patient In The: Office Counseled Patient/Family Regarding: Studies Performed, Diagnosis, Need For Followup - Disposition Disposition: Routine/Home Disposition Time: 11:04 Condition: GOOD Additional Instructions: PERNELL MEIER, thank you for letting us take care of you today. Your provider was Gomez French MD and you were treated for FEMALE GENITOURINARY. The emergency medical care you received today was directed at your acute symptoms. If you were prescribed any medication, please fill it and take as directed. It may take several days for your symptoms to resolve. Return to the Emergency Department if your symptoms worsen, do not improve, or if you have any other problems. Please contact your doctor or call one of the physicians/clinics you have been referred to that are listed on the Patient Visit Information form that is included in your discharge packet. Bring any paperwork you were given at discharge with you along with any medications you are taking to your follow up visit. Our treatment cannot replace ongoing medical care by a primary care provider outside of the emergency department. Thank you for allowing the [facility] team to be part of your care today. If you had an X-Ray or CT scan: A Radiologist will review the ED reading if any change in treatment is needed we will contact you. If you had a blood, urine, or wound culture: It will take several days for the results, if any change in treatment is needed we will contact you. If you had an STI test: It will take 48 hours for the results. Please call after 1 week if you have not heard back. Prescriptions: Phenazopyridine HCl [Pyridium] 100 mg PO TID #9 tablet Instructions: Urinary Tract Infection, Adult (DC)
== END 2018-07-12 11:46 | disposition home or self-care (01) ==
LOC: H.ER 06:49
DX: N39.0 Urinary tract infection, site not specified (principal)